=== PATIENT | male | born 1985 | race African-American/Black ===

== ENCOUNTER 2016-10-15 23:12 | Emergency (ER) | payer SELFPAY ==
[~2016-10-15] VITALS: Ht 182.9 cm; Wt 63.0 kg
[2016-10-15 23:30] VITALS: BP 121/81
[2016-10-15] MEDS ORDERED: ATIVAN2 MG ORAL (23:39)
[2016-10-15] MEDS ORDERED: RITALIN5 MG ORAL (23:39)
[2016-10-15] MEDS ORDERED: ADDERAL20 MG ORAL (23:39)
[2016-10-15] MEDS ORDERED: OMEPRAZOLE20 M2 ORAL (23:39)
[2016-10-15] MEDS ORDERED: FIORICET1 EA ORAL (23:39)
[2016-10-16 00:23] LABS: APPEARANCE,URINE CLEAR; KETONES,URINE NEGATIVE (NEGATIVE); LEUKOCYTE ESTERASE ,URINE 3+ (NEGATIVE); NITRITE,URINE NEGATIVE (NEGATIVE); PH,URINE 8 (4.5-8.0); PROTEIN,URINE NEGATIVE (NEGATIVE); UROBILINOGEN,URINE NORMAL MG/DL (0.0-1.0)
[2016-10-16] MEDS ORDERED: Levofloxacin 500mg tab ORAL ONE (00:30)
[2016-10-16] MEDS ORDERED: DOXYCYCLINE MO100 MG ORAL (00:32)
--- NOTE | 2016-10-16 00:33 | Emergency Room Report ---
History of Present Illness General Chief Complaint: Male Urogenital Problems Source: Patient Present Illness HPI Is a 30-year-old male with history of ulcer colitis, sickle cell. He presents with chief complaint of sore throat for the last 2 months. What brought him in today was he has urinary frequency and urgency. Also with dysuria. History of UTI in the past. He essentially active but last sexual activity was over 5 months ago. Also has a history of STDs with gonorrhea and Chlamydia. No discharge. Allergies: Coded Allergies: DIPHENHYDRAMINE (Verified Allergy, Unknown, 10/15/16) PENICILLINS (Verified Allergy, Unknown, 10/15/16) Patient History Past Medical History: see triage record, old chart reviewed Past Surgical History: none Pertinent Family History: none Social History: Denies: smoking Immunizations: other Reviewed Nursing Documentation: PMH: Agreed, PSxH: Agreed Nursing Documentation-PM Hx Gastrointestinal Problems: Yes - ULCERATIVE COLITIS,GASTRITIS Review of Systems Eye: Denies: blurred vision, eye pain ENT: Denies: ear pain, nose congestion, throat swelling Respiratory: Denies: cough, shortness of breath Cardiovascular: Denies: chest pain, palpitations Gastrointestinal: Denies: abdominal pain, diarrhea, nausea, vomiting Genitourinary: Reports: dysuria, frequency Musculoskeletal: Denies: back pain, joint pain Skin: Denies: rash Neurological: Denies: headache, numbness Endocrine: Denies: increased thirst, increased urine Hematologic/Lymphatic: Denies: easy bruising All Other Systems: negative except mentioned in HPI Physical Exam Vital Signs Date Time Temp Pulse Resp B/P Pulse Ox O2 Delivery O2 Flow Rate FiO2 10/15/16 23:14 97.9 95 16 121/81 98 Room Air vitals normal Sp02 EP Interpretation: reviewed, normal General Appearance: well appearing, no apparent distress, alert Head: normocephalic, atraumatic Eyes: bilateral eye EOMI, bilateral eye PERRL ENT: hearing grossly normal, normal pharynx Neck: full range of motion, supple, no meningismus Respiratory: chest non-tender, lungs clear, normal breath sounds Cardiovascular #1: regular rate, rhythm, no murmur Gastrointestinal: normal bowel sounds, non tender, no mass, no organomegaly, no bruit, non-distended Musculoskeletal: back normal, gait/station normal, normal range of motion Psychiatric: mood/affect normal Skin: warm/dry Medical Decision Making Diagnostic Impression: Primary Impression: UTI (urinary tract infection) Qualified Codes: N30.00 - Acute cystitis without hematuria Additional Impression: Pharyngitis Qualified Codes: J02.9 - Acute pharyngitis, unspecified ER Course Patient presents with chronic pharyngitis for last 2 months. This may be secondary to reflux and gastritis. He said he has severe gastritis. I see no thrush. Patient said that he gets HIV testing every 3 months. His been doing this for the last couple years. All other negative. He has no sexual activity for the last 5 months. He does have history of UTI. Urine showed UTI. Will treat. I will put him and doxycycline to cover for potential gonorrhea/ Chlamydia. Last Vital Signs Date Time Temp Pulse Resp B/P Pulse Ox O2 Delivery O2 Flow Rate FiO2 10/15/16 23:30 97.9 95 16 121/81 98 Room Air Status: improved Disposition: HOME, SELF-CARE Condition: Stable Scripts Doxycycline Monohydrate* (DOXYCYCLINE MONOHYDRATE*) 100 Mg Capsule 100 MG ORAL Q12H, #14 CAP 0 Refills Prov: IWONA TATE M.D. 10/16/16 Referrals: NOT CHOSEN [facility]/,REFERRING (PCP) Patient Instructions: Urinary Tract Infection Additional Instructions: Followup with in 2-5 days. Return if symptom worsen. IWONA TATE M.D. Oct 16, 2016 00:33
[2016-10-16 00:40] VITALS: BP 125/80
[2016-10-16 00:43] LABS: BACTERIA,URINE FEW /HPF; RBC,URINE 0-2 /HPF (0 - 0); WBC,URINE TNTC /HPF (0 - 0)
== END 2016-10-16 00:42 | disposition home or self-care (01) ==
LOC: EMR 23:34
DX: N39.0 Urinary tract infection, site not specified (principal); J02.9 Acute pharyngitis, unspecified; Z88.0 Allergy status to penicillin; Z87.19 Personal history of other diseases of the digestive system
CPT/HCPCS: 81003; 87086; 99283